=== PATIENT | female | born 1995 | race African-American/Black ===

== ENCOUNTER 2017-07-17 22:15 | Emergency (ER) | payer OTHER ==
--- NOTE | 2017-07-17 23:54 | ER Document Report ---
HPI - HPI Patient complains to provider of: Rhinitis Pain Level: 2 Context: Body aches/chills. She states that this is been over the past 2 days. She has been taking Mucinex [id number] without any significant improvement. Otherwise denies any difficulty breathing, difficulty swallowing, sore throat, cough, nausea, vomiting, diarrhea constipation. Past medical history significant for asthma denies any shortness of breath, chest pain Past Medical History - Social History Smoking Status: Never Smoker Family History: Reviewed & Not Pertinent Vertical Provider Document - CONSTITUTIONAL Agree With Documented VS: Yes Notes: PHYSICAL EXAM GENERAL: Alert, interacts well. HEENT: NCAT, pale conjunctiva, extraocular movements intact, pupils PERRL. external ear normal, no evidence of external auditory canal tenderness, blood/ drainage, cerumen impaction, TM intact without evidence of effusion, bulging, injection, MMM, Uvula midline. Airway patent. No evidence of tonsillar enlargement, peritonsillar abscess, retropharyngeal abscess. NECK: Full range of motion. Supple. Trachea midline. LUNGS: Clear to auscultation bilaterally, no wheezes, rales, or rhonchi. No respiratory distress. HEART: Regular rate and rhythm. No murmurs, gallops, or rubs. EXTREMITIES: Moves all 4 extremities spontaneously. No edema, radial and dorsalis pedis pulses 2/4 bilaterally. No cyanosis. NEUROLOGICAL: Alert and oriented x4. Normal speech. PSYCH: Normal affect, normal mood. SKIN: Warm, dry, normal turgor. No rashes or lesions noted. - INFECTION CONTROL TRAVEL OUTSIDE OF THE [place] IN LAST 30 DAYS: No Course - Re-evaluation Re-evalutation: 07/17/17 23:49 Presentation is most consistent with a viral upper respiratory infection. Patient is overall well appearance, vitals within normal limits, well-hydrated. Patient denies any headache, neck pain, and has no evidence of meningismus on examination. Lungs are clear bilaterally. No evidence of respiratory distress. Based on clinical exam and history, I do not suspect an acute pneumonia, meningitis, strep pharyngitis, or an acute encephalitis. No laboratory or imaging testing is indicated at this time. Will discharge patient with return precautions and followup recommendations. They are in agreement this plan have verbalized understanding return precautions. - Vital Signs Vital signs: Temp Pulse Resp BP Pulse Ox 98.6 F 102 H 20 120/79 98 07/17/17 22:34 07/17/17 22:34 07/17/17 22:34 07/17/17 22:34 07/17/17 22:34 Discharge - Discharge Clinical Impression: Rhinitis Qualifiers: Rhinitis type: unspecified Qualified Code(s): J31.0 - Chronic rhinitis Condition: Good Disposition: HOME, SELF-CARE Additional Instructions: Your symptoms are most likely due to a viral infection it should resolve over the next 7-14 days. For nasal congestion: I would recommend that you get over- the-counter oxymetazoline also known is afrin. Use only per bottle instructions and be sure to never use this for more than 3 days if you can develop severe rebound congestion. You may also use tylenol or ibuprofen as needed for aches and thorat discomfort. Please be sure to drink plenty of fluids and get rest. Return to the emergency department he began having difficulty breathing, chest pain, persistent vomiting, or any other symptoms that are concerning to you. Prescriptions: Albuterol Sulfate [Proair HFA Inhalation Aerosol 8.5 gm MDI] 2 puff IH Q4H PRN # 1 mdi PRN Reason: Forms: Return to Work Referrals: OLIVIA BROWNING MD [ACTIVE STAFF] - Follow up in 1 month
[2017-07-18 00:27] VITALS: BP 118/80
== END 2017-07-18 00:30 | disposition home or self-care (01) ==
LOC: ER 22:15
DX: J31.0 Chronic rhinitis (principal)
CPT/HCPCS: 99283

== ENCOUNTER 2019-02-20 22:16 | Emergency (ER) | payer OTHER ==
[2019-02-21 00:39] LABS: APPEARANCE,URINE SLIGHTLY-CLOUDY; BILIRUBIN,URINE NEGATIVE (NEGATIVE); COLOR,URINE YELLOW; GLUCOSE, URINE NEGATIVE (NEGATIVE); KETONES,URINE NEGATIVE (NEGATIVE); PROTEIN,URINE NEGATIVE (NEGATIVE); URINE SPECIFIC GRAVITY 1.018; UROBILINOGEN,URINE NEGATIVE mg/dL (<2.0)
[2019-02-21] MEDS ORDERED: ONDANSETRON 4 MG TAB.RAPDIS PO ONE (02:34)
--- NOTE | 2019-02-21 02:43 | ER Document Report ---
ED General - General Chief Complaint: Abdominal Pain Stated Complaint: URINARY COMPLAINTS/DISCHARGE Time Seen by Provider: 02/21/19 01:26 Notes: 24-year-old female presents to the ER with vaginal itching, vaginal discharge, nausea, frequent urination, urgency, dysuria, lower abdominal cramping. Patient states urinary symptoms have been ongoing for 1 week and vaginal symptoms/nausea/abdominal cramping been ongoing for past few days. Patient states she has a new sexual partner she has been having unprotected intercourse with. Denies vomiting, diarrhea, abdominal pain, fever. TRAVEL OUTSIDE OF THE [place] IN LAST 30 DAYS: No - Related Data Allergies/Adverse Reactions: No Known Allergies Allergy (Unverified 07/17/17 22:17) Past Medical History - Social History Smoking Status: Never Smoker Chew tobacco use (# tins/day): No Frequency of alcohol use: None Drug Abuse: None Family History: Reviewed & Not Pertinent Patient has suicidal ideation: No Patient has homicidal ideation: No Renal/ Medical History: Denies: Hx Peritoneal Dialysis Review of Systems - Review of Systems Notes: Constitutional: Negative for fever. HENT: Negative for sore throat. Eyes: Negative for visual changes. Cardiovascular: Negative for chest pain. Respiratory: Negative for shortness of breath. Gastrointestinal: Negative for abdominal pain, vomiting or diarrhea. Genitourinary: Positive for dysuria, urgency, frequency, vaginal discharge, vaginal itching. Musculoskeletal: Negative for back pain. Skin: Negative for rash. Neurological: Negative for headaches, weakness or numbness. 10 point ROS negative except as marked above and in HPI. Physical Exam - Vital signs Vitals: Temp Pulse Resp BP Pulse Ox 98.6 F 85 18 107/70 97 02/20/19 22:25 02/20/19 22:25 02/20/19 22:25 02/20/19 22:25 02/20/19 22:25 - Notes Notes: GENERAL: Well-appearing, well-nourished and in no acute distress. HEAD: Atraumatic, normocephalic. EYES: Extraocular movements intact, sclera anicteric, conjunctiva are normal. NECK: Normal range of motion, supple without lymphadenopathy or JVD. ABDOMEN: Soft, nontender. No guarding, no rebound. No masses appreciated. Female : No inguinal adenopathy. External genitalia without erythema, lesions, or masses. Vaginal mucosa pink. Cervix parous, pink, and with white discharge. EXTREMITIES: Normal range of motion, no pitting or edema. No clubbing or cyanosis. NEUROLOGICAL: Cranial nerves II through XII grossly intact. Normal speech, normal gait. PSYCH: Normal mood, normal affect. SKIN: Warm, Dry, normal turgor, no rashes or lesions noted. Course - Re-evaluation Re-evalutation: 02/21/19 Patient is an afebrile, well-hydrated, 24-year-old female who presents to the ED with vaginal discharge, lower abdominal cramping, and urinary symptoms. Vitals are acceptable without any significant tachycardia, tachypnea, or hypoxia. PE is otherwise unremarkable. Urinalysis and hCG are unremarkable for any acute pathology. Wet mount ordered. Chlam/gonorrhea tests also ordered Patient is nontoxic-appearing is tolerating p.o. without any difficulties. No other labs or imaging warranted at this time based on H&P. Low suspicion/risk for acute appendicitis, bowel obstruction, acute cholecystitis, acute cholangitis, perforated diverticulitis, incarcerated hernia, pancreatitis, perforated ulcer, peritonitis, sepsis, pelvic inflammatory disease, ectopic , tubo- ovarian abscess, ovarian torsion, or other systemic emergent condition at this time. 02/21/19 04:41 Pt is positive for Chlamydia. Pt treated with Rocephin and Azithromycin. All results reviewed with pt including positive chlamydia. Pt to inform partner of status and need to have partner treated. Patient is aware that her condition can change from initial presentation and she needs to monitor symptoms closely and seek medical attention if any acute changes. Referral given to obgyn in 3-5 days. Return to the ED with any worsening/concerning symptoms otherwise as reviewed in discharge. Patient is in agreement. - Vital Signs Vital signs: Temp Pulse Resp BP Pulse Ox 98.6 F 85 18 107/70 97 02/20/19 22:25 02/20/19 22:25 02/20/19 22:25 02/20/19 22:25 02/20/19 22:25 - Laboratory Laboratory results interpreted by me: 02/21/19 02/21/19 00:15 02:33 Leukocyte Esterase Rfl SMALL H Urine Ascorbic Acid 40 H Chlamydia DNA (PCR) DETECTED H Discharge - Discharge Clinical Impression: Chlamydia infection Condition: Stable Disposition: HOME, SELF-CARE Instructions: Chlamydia ([facility]) Additional Instructions: You were positive for chlamydia today. You were treated for gonorrhea and chlamydia today. Please follow up with balance wheel facer listed in 3-5 days. Please abstain from sex for 7 days. Please make sure to have your partner treated as well. Return to ER for any worsening symptoms, including pain, fever, increased vaginal discharge, increasing burning with urination, or vomiting or any other symptoms that may be concerning to you. Referrals: [facility] [Provider Group] - Follow up in 3-5 days
[2019-02-21 02:52] LABS: BACTERIA (WET MOUNT) 4+ BACTERIA SEEN; EPITHELIALS (WET MOUNT) 3+ EPITHELIALS SEEN; RBCS (WET MOUNT) NO RBCS SEEN; T.VAGINALIS (WET MOUNT) NO TRICHOMONAS SEEN; WBCS (WET MOUNT) 4+ WBCS SEEN; YEAST (WET MOUNT) NO YEAST SEEN
[2019-02-21 04:15] LABS: CHLAM PCR DETECTED (NOT DETECT)
[2019-02-21] MEDS ORDERED: AZITHROMYCIN 250 MG TABLET PO ONE (04:36)
[2019-02-21] MEDS ORDERED: CEFTRIAXONE INJ 250 MG VIAL IM ONE (04:36)
[2019-02-21] MEDS ORDERED: ONDANSETRON ODT 4 MG TAB (6 TAB/ER DISP) PO PRN (04:47)
[2019-02-21 04:59] VITALS: BP 123/75
== END 2019-02-21 05:00 | disposition home or self-care (01) ==
LOC: ER 22:16
DX: A74.9 Chlamydial infection, unspecified (principal); R10.9 Unspecified abdominal pain; R39.198 Other difficulties with micturition; N89.8 Other specified noninflammatory disorders of vagina; R11.0 Nausea; R35.0 Frequency of micturition; R39.15 Urgency of urination; R30.0 Dysuria; R10.30 Lower abdominal pain, unspecified
CPT/HCPCS: 99284; 96372; 87086; 87210; 81025; 87088; 81001; 87491; 87591; S0119; J0696

== ENCOUNTER 2019-04-16 10:02 | Emergency (ER) | payer SELFPAY ==
[2019-04-16] MEDS ORDERED: CEFTRIAXONE INJ 250 MG VIAL IM ONE (10:17)
[2019-04-16] MEDS ORDERED: AZITHROMYCIN 250 MG TABLET PO ONE (10:17)
[2019-04-16] MEDS ORDERED: LIDOCAINE 1% INJ-PF (10 MG/ML) 30 ML SDV INJ ONE (10:17)
--- NOTE | 2019-04-16 10:20 | ER Document Report ---
HPI - HPI Time Seen by Provider: 04/16/19 10:14 Notes: Patient is a 25-year-old female with history of asthma who presents complaining of urinary burning, urgency, and darker color, scant vaginal discharge and odor that began last night. She is able to eat and drink without difficulty. She is having normal bowel movements. She does not have any pain associated. Denies drug allergies. Denies any headache, fever, neck pain, URI, sore throat, chest pain, palpitations, syncope, cough, shortness of breath, wheeze, dyspnea, abdominal pain, nausea/vomiting/diarrhea, urinary retention, hematuria, back pain, loss of control of bowel or bladder, numbness/tingling, saddle anesthesia, muscle paralysis/weakness, or rash. - ROS Systems Reviewed and Negative: Yes All other systems reviewed and negative - REPRODUCTIVE Reproductive: DENIES: : Past Medical History - Social History Smoking Status: Unknown if Ever Smoked Family History: Reviewed & Not Pertinent Pulmonary Medical History: Reports: Hx Asthma Renal/ Medical History: Denies: Hx Peritoneal Dialysis Vertical Provider Document - CONSTITUTIONAL Agree With Documented VS: Yes Notes: PHYSICAL EXAMINATION: GENERAL: Well-appearing, well-nourished and in no acute distress. LUNGS: Breath sounds clear to auscultation bilaterally and equal. No wheezes rales or rhonchi. HEART: Regular rate and rhythm without murmurs, rubs, gallops. ABDOMEN: Soft, nontender, nondistended abdomen. No guarding, no rebound. Normal bowel sounds present. No CVA tenderness bilaterally. : deferred/declined, no lower pelvic tenderness. Pt wanted to self-swab. Musculoskeletal: FROM to passive/active. Strength 5+/5. Extremities: No cyanosis, clubbing, or edema b/l. Peripheral pulses 2+. Capillary refill less than 3 seconds. NEUROLOGICAL: Normal speech, normal gait. PSYCH: Normal mood, normal affect. SKIN: Warm, Dry, normal turgor, no rashes or lesions noted. - INFECTION CONTROL TRAVEL OUTSIDE OF THE [place] IN LAST 30 DAYS: No Course - Re-evaluation Re-evalutation: 04/16/19 11:14 Patient is an afebrile, well-hydrated, 24-year-old female who presents with an acute UTI. Vitals are acceptable without significant tachycardia, tachypnea, hypoxia. PE is otherwise unremarkable. Patient's abdomen is soft nontender. She is nontoxic-appearing and is tolerating p.o. without difficulty. See urinalysis. Urine cultures pending. See wet mount results. Chlamydia gonorrhea tests are also pending. Patient did receive Zithromax and Rocephin. No further work-up warranted. Low suspicion/risk for acute appendicitis, bowel obstruction, acute cholecystitis, acute cholangitis, perforated diverticulitis, incarcerated hernia, pancreatitis, perforated ulcer, peritonitis, sepsis, pelvic inflammatory disease, ectopic , tubo-ovarian abscess, ovarian torsion, or other systemic emergent condition at this time. Patient is aware that her condition can change from initial presentation and she needs to monitor symptoms closely and seek medical attention if any acute changes. Rx for keflex. Conser vative measures otherwise for symptoms. Recheck with your PCM in 3-5 days. Return to the ED with any worsening/concerning symptoms otherwise as reviewed in discharge. Patient is in agreement. - Vital Signs Vital signs: Temp Pulse Resp BP Pulse Ox 97.9 F 87 16 140/82 H 100 04/16/19 10:07 04/16/19 10:07 04/16/19 10:07 04/16/19 10:04/16/19 10:07 Discharge - Discharge Clinical Impression: Acute UTI (urinary tract infection) Condition: Stable Disposition: HOME, SELF-CARE Instructions: Urinary Tract Infection ([facility]), Cephalexin ([facility]) Additional Instructions: Push fluids (i.e. water, cranberry juice) Proper hygenic technique Keep the skin clean Tylenol/ibuprofen as needed May use over the counter AZO for burning with urination Take medications as directed F/u with your PCM in 3-5 days for a recheck Consider consult with a Urologist for ongoing/worsening symptoms. Return to the ED with any worsening symptoms and/or development of fever, headache, chest pain, palpitations, syncope, shortness of breath, trouble breathing, abdominal pain, n/v/d, blood in stool/urine, loss of control of bowel/bladder, urinary retention, or other worsening symptoms that are concerning to you. Prescriptions: Cephalexin Monohydrate [Keflex 500 mg Capsule] 500 mg PO TID #21 capsule Forms: Elevated Blood Pressure Referrals: [facility] [Provider Group] - Follow up as needed
[2019-04-16 11:02] LABS: APPEARANCE,URINE TURBID; BILIRUBIN,URINE NEGATIVE (NEGATIVE); COLOR,URINE YELLOW; GLUCOSE, URINE NEGATIVE (NEGATIVE); KETONES,URINE TRACE mg/dL (NEGATIVE); LEUKOCYTE ESTERASE,URINE LARGE (NEGATIVE); NITRITE,URINE NEGATIVE (NEGATIVE); PROTEIN,URINE >=500 mg/dL (NEGATIVE); URINE SPECIFIC GRAVITY 1.025
[2019-04-16 11:05] LABS: EPITHELIALS (WET MOUNT) 3+ EPITHELIALS SEEN; RBCS (WET MOUNT) RARE RBCS SEEN; T.VAGINALIS (WET MOUNT) NO TRICHOMONAS SEEN; WBCS (WET MOUNT) FEW WBCS SEEN; YEAST (WET MOUNT) NO YEAST SEEN
[2019-04-16 11:22] VITALS: BP 136/78
[2019-04-16 12:26] LABS: CHLAM PCR NOT DETECTED (NOT DETECT)
== END 2019-04-16 11:26 | disposition home or self-care (01) ==
LOC: ER 10:02
DX: N39.0 Urinary tract infection, site not specified (principal); N89.8 Other specified noninflammatory disorders of vagina; J45.909 Unspecified asthma, uncomplicated
CPT/HCPCS: 99283; 96372; 87086; 87210; 87088; 81001; 87186; 87491; 87591; J3490; J0696

== ENCOUNTER → 2019-07-18 | Outpatient (CLI) | payer SELFPAY ==
[2019-07-18 19:26] LABS: BACTERIA (WET MOUNT) 3+ BACTERIA SEEN; EPITHELIALS (WET MOUNT) 4+ EPITHELIALS SEEN; RBCS (WET MOUNT) NO RBCS SEEN; T.VAGINALIS (WET MOUNT) NO TRICHOMONAS SEEN; WBCS (WET MOUNT) 4+ WBCS SEEN; YEAST (WET MOUNT) NO YEAST SEEN
[2019-07-18 20:51] LABS: CHLAM PCR NOT DETECTED (NOT DETECT)
== END ==
LOC: LAB 19:16
PROVIDERS: ATTEND Nurse Practitioner Family
DX: N89.8 Other specified noninflammatory disorders of vagina (principal); R30.0 Dysuria
CPT/HCPCS: 87086; 87088; 87210; 87491; 87591

== ENCOUNTER 2019-08-03 06:06 | Emergency (ER) | payer SELFPAY ==
[2019-08-03] MEDS ORDERED: ALBUTEROL SULFATE 0.083% NEB 2.5 MG/3 ML AMPUL NEB ONE (06:13)
[2019-08-03] MEDS ORDERED: IPRATROPIUM/ALBUTEROL 0.5-2.5 MG/3 ML AMPUL NEB ONE ×2 (06:13→06:19)
[2019-08-03] MEDS ORDERED: PREDNISONE 20 MG TABLET PO ONE (06:35)
--- NOTE | 2019-08-03 06:41 | ER Document Report ---
ED General - General Chief Complaint: Shortness Of Breath Stated Complaint: ASTHMA EXACERBATION Time Seen by Provider: 08/03/19 06:28 Primary Care Provider: ZËO CORTEZ NP [Primary Care Provider] - Follow up as needed TRAVEL OUTSIDE OF THE [place] IN LAST 30 DAYS: No - HPI Notes: Chief complaint: Asthma exacerbation History of present illness: 24-year-old female with longstanding history of paroxysmal asthma for which she uses albuterol as a rescue inhaler. States she is currently out of her inhaler. She went to visit a family member who has a dog and started wheezing overnight. She drove herself to the emergency department. She is a non-smoker. She denies fever. She denies sputum production. Denies any known exposure to COVID virus. No travel outside the area. Not currently on steroids. No history of diabetes. Patient is on Depo- Provera for contraception. No known allergies. No other significant medical problems. - Related Data Allergies/Adverse Reactions: No Known Allergies Allergy (Verified 03/30/19 16:55) Past Medical History - General Information source: Patient, [facility] Records - Social History Smoking Status: Never Smoker Chew tobacco use (# tins/day): No Frequency of alcohol use: None Drug Abuse: None Family History: Reviewed & Not Pertinent Patient has suicidal ideation: No Patient has homicidal ideation: No Pulmonary Medical History: Reports: Hx Asthma Renal/ Medical History: Denies: Hx Peritoneal Dialysis Review of Systems - Review of Systems Notes: Constitutional: Negative for fever. HENT: Negative for sore throat. Eyes: Negative for visual changes. Cardiovascular: Negative for chest pain. Respiratory: As per HPI. Gastrointestinal: Negative for abdominal pain, vomiting or diarrhea. Genitourinary: Negative for dysuria. Musculoskeletal: Negative for back pain. Skin: Negative for rash. Neurological: Negative for headaches, weakness or numbness. 10 point ROS negative except as marked above and in HPI. Physical Exam - Vital signs Vitals: Temp Pulse Resp BP Pulse Ox 98.9 F 98 24 H 138/84 H 94 08/03/19 06:10 08/03/19 06:10 08/03/19 06:10 08/03/19 06:10 08/03/19 06:10 - Notes Notes: GENERAL: Well-developed well-nourished appearing in no acute distress. SKIN: Good turgor no rashes. HEAD: Normocephalic atraumatic. EYES: PERRLA. EOMI. Conjunctivae and sclerae clear. EARS: CANALS AND TMS CLEAR. NOSE: CLEAR. MOUTH: Moist mucosa. Good dentition. No stridor or edema. No drooling. NECK: Supple. No masses or thyromegaly. No adenopathy. Carotids 2+ without bruits. No JVD. BACK: Symmetrical without tenderness. CHEST: Respirations unlabored. Scattered faint end expiratory wheezes bilaterally. HEART: Regular rhythm. No murmur gallop or rub. ABDOMEN: Soft nontender without masses, organomegaly or rebound. Bowel sounds normally active. No bruits. GENITALIA: Deferred. EXTREMITIES: No edema. No calf tenderness. Cap refill less than 1.5 seconds. Dorsalis pedis and posterior tibial pulses 3+ and symmetrical. NEUROLOGICAL: GCS 15. Alert and oriented x3. Normal gait. Fluent speech. Cranial nerves II through XII intact. Sensorimotor and cerebellar normal. Normal tone. PSYCHIATRIC: Appropriate affect. Course - Re-evaluation Re-evalutation: 08/03/19 06:39 Patient has received multiple DuoNeb treatments here. Oxygenation is good. Wheezes have essentially resolved. She has been given some oral prednisone. I am going to refill a metered-dose inhaler for her and discharge her home. - Vital Signs Vital signs: Temp Pulse Resp BP Pulse Ox 98.9 F 98 24 H 138/84 H 94 08/03/19 06:10 08/03/19 06:10 08/03/19 06:10 08/03/19 06:10 08/03/19 06:10 Discharge - Discharge Clinical Impression: Asthma exacerbation Qualifiers: Asthma severity: mild Asthma persistence: intermittent Qualified Code(s): J45.21 - Mild intermittent asthma with (acute) exacerbation Condition: Stable Disposition: HOME, SELF-CARE Instructions: Asthma ([facility]), Inhaled Bronchodilators ([facility]) Prescriptions: Prednisone [Deltasone 20 mg Tablet] 2 tab PO DAILY 5 Days tablet Albuterol Sulfate [Proair HFA Inhalation Aerosol 8.5 gm MDI] 2 puff IH Q4H PRN #1 mdi PRN Reason: Referrals: ZOË CORTEZ [employer] [Primary Care Provider] - Follow up as needed
[2019-08-03 07:25] VITALS: BP 121/79
== END 2019-08-03 07:45 | disposition home or self-care (01) ==
LOC: ER 06:06
DX: J45.21 Mild intermittent asthma with (acute) exacerbation (principal); Z79.899 Other long term (current) drug therapy; Z79.3 Long term (current) use of hormonal contraceptives
CPT/HCPCS: 94640; 99284; J7512; J7620

== ENCOUNTER 2019-10-07 19:59 | Emergency (ER) | payer SELFPAY ==
--- NOTE | 2019-10-07 20:30 | ER Document Report ---
ED Medical Screen (RME) - General Chief Complaint: Vaginal Discharge Stated Complaint: VAGINAL ISSUE Time Seen by Provider: 10/07/19 20:27 Information source: Patient Notes: 24-year-old female with yellow frothy discharge frequency urgency burning and lower abdominal pain TRAVEL OUTSIDE OF THE [place] IN LAST 30 DAYS: No - Related Data Allergies/Adverse Reactions: No Known Allergies Allergy (Verified 10/07/19 20:24) Past Medical History - Social History Frequency of alcohol use: None Drug Abuse: None Pulmonary Medical History: Reports: Hx Asthma Renal/ Medical History: Denies: Hx Peritoneal Dialysis Physical Exam - Vital signs Vitals: Temp Pulse Resp BP Pulse Ox 99 F 98 14 130/81 H 98 10/07/19 20:02 10/07/19 20:02 10/07/19 20:02 10/07/19 20:02 10/07/19 20:02 Course - Vital Signs Vital signs: Temp Pulse Resp BP Pulse Ox 99 F 98 14 130/81 H 98 10/07/19 20:24 10/07/19 20:02 10/07/19 20:02 10/07/19 20:02 10/07/19 20:02
[2019-10-07 21:02] LABS: ABSOLUTE BASOPHILS # (AUTO) 0.1 10^3/uL (0.0-0.2); ABSOLUTE EOSINOPHILS # (AUTO) 0.3 10^3/uL (0.0-0.6); ABSOLUTE LYMPHOCYTES (AUTO) 3.2 10^3/uL (0.5-4.7); ABSOLUTE MONOCYTES (AUTO) 0.9 10^3/uL (0.1-1.4); ABSOLUTE NEUT (AUTO) 5.2 10^3/uL (1.7-8.2); BASOPHILS % (AUTO) 0.8 % (0-2); EOSINOPHILS % (AUTO) 3.5 % (0-6); HEMATOCRIT 39.9 % (36.0-47.0); HEMOGLOBIN 13.8 g/dL (12.0-15.5); LYMPHOCYTES % (AUTO) 33.3 % (13-45); MEAN CORPUSCULAR HEMOGLOBIN 30.2 pg (27.0-33.4); MEAN CORPUSCULAR HGB CONC 34.5 g/dL (32.0-36.0); MEAN CORPUSCULAR VOLUME 88 fl (80-97); MONOCYTES % (AUTO) 8.8 % (3-13); PLATELET COUNT 333 10^3/uL (150-450); RED BLOOD COUNT 4.56 10^6/uL (3.72-5.28); RED CELL DISTRIBUTION WIDTH 12.8 % (11.5-14.0); SEGMENTED NEUTROPHILS % (AUTO) 53.6 % (42-78); TOTAL CELLS COUNTED % (AUTO) 100 %; WHITE BLOOD COUNT 9.7 10^3/uL (4.0-10.5)
[2019-10-07 21:15] LABS: URINE AMPHETAMINES SCREEN NEGATIVE; URINE BARBITURATES SCREEN NEGATIVE; URINE BENZODIAZEPINES SCREEN NEGATIVE; URINE COCAINE SCREEN NEGATIVE; URINE METHADONE SCREEN NEGATIVE; URINE PHENCYCLIDINE SCREEN NEGATIVE
[2019-10-07 21:18] LABS: URINE MARIJUANA (THC) SCREEN UNCONFIRMED POSITIVE
[2019-10-07 21:25] LABS: ALBUMIN 4.6 g/dL (3.5-5.0); ALKALINE PHOSPHATASE 63 U/L (38-126); ANION GAP 8 (5-19); ASPARTATE AMINO TRANSFERASE 20 U/L (14-36); BILIRUBIN,TOTAL 0.4 mg/dL (0.2-1.3); BLOOD UREA NITROGEN 7 mg/dL (7-20); CALCIUM 10.1 mg/dL (8.4-10.2); CARBON DIOXIDE 24 mmol/L (22-30); CHLORIDE 106 mmol/L (98-107); GLUCOSE 86 mg/dL (75-110); POTASSIUM 3.8 mmol/L (3.6-5.0)
[2019-10-07 22:27] LABS: CHLAM PCR NOT DETECTED (NOT DETECT)
[2019-10-08 01:57] VITALS: BP 120/67
[2019-10-08 02:12] LABS: EPITHELIALS (WET MOUNT) 3+ EPITHELIALS SEEN; RBCS (WET MOUNT) 1+ RBCS SEEN; T.VAGINALIS (WET MOUNT) NO TRICHOMONAS SEEN; WBCS (WET MOUNT) 1+ WBCS SEEN; YEAST (WET MOUNT) NO YEAST SEEN
--- NOTE | 2019-10-08 02:17 | ER Document Report ---
ED GI/ - General Chief Complaint: Vaginal Discharge Stated Complaint: VAGINAL ISSUE Time Seen by Provider: 10/07/19 20:27 Primary Care Provider: [facility] [Provider Group] - Follow up as needed Mode of Arrival: Ambulatory Information source: Patient Notes: 21-year-old female presented to ED for complaint of yellow frothy vaginal discharge. The note upon had said that she was having burning with urination and lower abdominal pain. Patient states she was not having any pain at all she was having vaginal discharge and odor and so she was concerned. TRAVEL OUTSIDE OF THE [place] IN LAST 30 DAYS: No - HPI Patient complains to provider of: Vaginal discharge Onset: Other - Several days Timing/Duration: Persistent Quality of pain: No pain Severity in ED: None Pain Level: Denies Vaginal bleeding (Compared to normal period): None Associated symptoms: Vaginal discharge Exacerbated by: Denies Relieved by: Denies Similar symptoms previously: Yes Recently seen / treated by doctor: No - Related Data Allergies/Adverse Reactions: No Known Allergies Allergy (Verified 10/07/19 20:24) Past Medical History - General Information source: Patient - Social History Smoking Status: Never Smoker Frequency of alcohol use: None Drug Abuse: None Family History: Reviewed & Not Pertinent Patient has homicidal ideation: No - Past Medical History Cardiac Medical History: Reports: None Pulmonary Medical History: Reports: Hx Asthma EENT Medical History: Reports: None Neurological Medical History: Reports: None Endocrine Medical History: Reports: None Renal/ Medical History: Reports: None Malignancy Medical History: Reports: None GI Medical History: Reports: None Musculoskeletal Medical History: Reports None Skin Medical History: Reports None Psychiatric Medical History: Reports: None Traumatic Medical History: Reports: None Infectious Medical History: Reports: None Surgical Hx: Negative Past Surgical History: Reports: None - Immunizations Immunizations up to date: Yes Review of Systems - Review of Systems Constitutional: No symptoms reported EENT: No symptoms reported Cardiovascular: No symptoms reported Respiratory: No symptoms reported Gastrointestinal: No symptoms reported Genitourinary: No symptoms reported Female Genitourinary: Vaginal discharge, Vaginal odor Musculoskeletal: No symptoms reported Skin: No symptoms reported Hematologic/Lymphatic: No symptoms reported Neurological/Psychological: No symptoms reported -: Yes All other systems reviewed and negative Physical Exam - Vital signs Vitals: Temp Pulse Resp BP Pulse Ox 99 F 98 14 130/81 H 98 10/07/19 20:02 10/07/19 20:02 10/07/19 20:02 10/07/19 20:02 10/07/19 20:02 Interpretation: Normal - General General appearance: Appears well, Alert - HEENT Head: Normocephalic, Atraumatic Eyes: Normal Pupils: PERRL - Respiratory Respiratory status: No respiratory distress Chest status: Nontender Breath sounds: Normal Chest palpation: Normal - Cardiovascular Rhythm: Regular Heart sounds: Normal auscultation Murmur: No - Abdominal Inspection: Normal Distension: No distension Bowel sounds: Normal Tenderness: Nontender Organomegaly: No organomegaly Notes: She denies any pain has had vaginal discharge - Back Back: Normal, Nontender - Extremities General upper extremity: Normal inspection, Nontender, Normal color, Normal ROM, Normal temperature General lower extremity: Normal inspection, Nontender, Normal color, Normal ROM, Normal temperature, Normal weight bearing. No: Maycol's sign - Neurological Neuro grossly intact: Yes Cognition: Normal Orientation: AAOx4 [place] Coma Scale Eye Opening: Spontaneous [place] Coma Scale Verbal: Oriented [place] Coma Scale Motor: Obeys Commands [place] Coma Scale Total: 15 Speech: Normal Motor strength normal: LUE, RUE, LLE, RLE Sensory: Normal - Psychological Associated symptoms: Normal affect, Normal mood - Skin Skin Temperature: Warm Skin Moisture: Dry Skin Color: Normal Course - Re-evaluation Re-evalutation: 10/08/19 07:22 Patient states she has vaginal discharge and odor. She states she has no a bdominal pain no pelvic pain. States she just did not know why she was having this vaginal discharge. She states she uses different female hygiene products and the odor does not improve. I have given her instructions concerning to stop using the douches and to use yogurt to reestablish the bacteria to her vaginal area to reduce the odor. Her GC and chlamydia and wet mount were negative. Patient was discharged home with instructions to follow-up with [facility]. - Vital Signs Vital signs: Temp Pulse Resp BP Pulse Ox 97.8 F 66 16 120/67 99 10/08/19 01:57 10/08/19 01:57 10/08/19 01:57 10/08/19 01:57 10/08/19 01:57 - Laboratory Result Diagrams: 10/07/19 20:40 10/07/19 20:40 Discharge - Discharge Clinical Impression: Vaginal discharge Condition: Stable Disposition: HOME, SELF-CARE Additional Instructions: You were seen today for vaginal discharge. Your gonorrhea chlamydia test is negative. Your wet mount for trichomonas or yeast is negative. Your urine is negative for any UTI. Your blood work is normal. As we have discussed please stop using vaginal douches as this alters the pH which actually can cause discharge and odor. Eat yogurt or take a probiotic to help to be established the pH in this area Acetaminophen Acetaminophen may be taken for pain relief or fever control. It's much safer than aspirin, offering a wider range of "safe" dosages. It is safe during . Some brand names are Tylenol, Panadol, Datril, Anacin 3, Tempra, and Liquiprin. Acetaminophen can be repeated every four hours. The following are maximum recommended dosages: WEIGHT Dose Drops Elixir Chewable(80mg) (LBS.) drprs=droppers tsp=teaspoon 6 40 mg .4 ml (1/2) 6-11 80 mg .8 ml (full) 1/2 tsp 1 tab 12-16 120 mg 1 1/2 drprs 3/4 tsp 1 1/2 tabs 17-23 160 mg 2 drprs 1 tsp 2 tabs 24-30 240 mg 3 drprs 1 1/2 tsp 3 tabs 30-35 320 mg 2 tsp 4 tabs 36-41 360 mg 2 1/4 tsp 4 1/2 tabs 42-47 400 mg 2 1/2 tsp 5 tabs 48-53 480 mg 3 tsp 6 tabs 54-59 520 mg 3 1/4 tsp 6 1/2 tabs 60-64 560 mg 3 1/2 tsp 7 tabs 65-70 600 mg 3 3/4 tsp 7 1/2 tabs 71-76 640 mg 4 tsp 8 tabs 77-82 720 mg 4 1/2 tsp 9 tabs 83-88 800 mg 5 tsp 10 tabs >89 pounds or adults 650 mg to 900 mg Acetaminophen can be repeated every four hours. Maximum daily dose not to exceed 4000 mg. These maximum recommended dosages are slightly higher than the dosages written on the product container, but these dosages are very safe and well below the toxic dosage for acetaminophen. Ibuprofen Ibuprofen is an excellent, safe drug for pain control. In addition, it has potent antiinflammatory effects which are beneficial, especially in the treatment of injuries, arthritis, or tendonitis. It's best to take ibuprofen with food. Persons with ulcer disease or allergy to aspirin should notify their physician of this before taking ibuprofen. Take the medication exactly as prescribed. Don't take additional doses unless instructed to do so by your doctor. If you develop wheezing, shortness of breath, hives, faintness, stomach pain, vomiting, or dark black stools, return for re-evaluation at once. FOLLOW-UP CARE: If you have been referred to a physician for follow-up care, call the physicians office for an appointment as you were instructed or within the next two days. If you experience worsening or a significant change in your symptoms, notify the physician immediately or return to the Emergency Department at any time for re-evaluation. Forms: Smoking Cessation Education, Return to Work Referrals: [facility] [Provider Group] - Follow up as needed
== END 2019-10-08 02:35 | disposition home or self-care (01) ==
LOC: ER 19:59
DX: N89.8 Other specified noninflammatory disorders of vagina (principal); R30.0 Dysuria; R10.30 Lower abdominal pain, unspecified
CPT/HCPCS: 36415; 80053; 80307; 84703; 85025; 87210; 87491; 87591; 99283

== ENCOUNTER 2019-11-20 22:06 | Emergency (ER) | payer SELFPAY ==
[2019-11-20] MEDS ORDERED: NORMAL SALINE 1000 ML 1,000 ML IV ONE (23:29)
[2019-11-20] MEDS ORDERED: IPRATROPIUM/ALBUTEROL 0.5-2.5 MG/3 ML AMPUL NEB ONE (23:29)
[2019-11-20] MEDS ORDERED: METHYLPREDNISOLONE INJ 125 MG/2 ML SDV IV ONE (23:29)
--- NOTE | 2019-11-20 23:32 | ER Document Report ---
ED General - General Chief Complaint: Sore Throat Stated Complaint: FEVER,SHORTNESS OF BREATH Time Seen by Provider: 11/20/19 23:03 Notes: Patient is a 24-year-old female that comes emergency department for chief complaint of sore throat, then congestion, body aches, subjective fevers, and a worsening cough with mainly clear but occasionally yellowish mucus production. She has not tested her temperature but reports she has had chills. She does have a history of asthma and uses a nebulizer at home, she denies smoking. She denies any other medications or past medical history, she denies recreational drugs except for marijuana. She denies any obvious sick contacts or recent travel. She denies . TRAVEL OUTSIDE OF THE [place] IN LAST 30 DAYS: No - Related Data Allergies/Adverse Reactions: No Known Allergies Allergy (Verified 10/07/19 20:24) Home Medications: Albuterol inhaler. Neb tx/machine Past Medical History - General Information source: Patient - Social History Smoking Status: Never Smoker Chew tobacco use (# tins/day): No Frequency of alcohol use: None Drug Abuse: None Lives with: Family Family History: Reviewed & Not Pertinent Patient has homicidal ideation: No Pulmonary Medical History: Reports: Hx Asthma Renal/ Medical History: Denies: Hx Peritoneal Dialysis - Immunizations Immunizations up to date: Yes Review of Systems - Review of Systems Constitutional: See HPI EENT: See HPI Cardiovascular: No symptoms reported Respiratory: See HPI Gastrointestinal: No symptoms reported Genitourinary: No symptoms reported Female Genitourinary: No symptoms reported Musculoskeletal: No symptoms reported Skin: No symptoms reported Hematologic/Lymphatic: No symptoms reported Neurological/Psychological: No symptoms reported Physical Exam - Vital signs Vitals: Temp Pulse Resp BP Pulse Ox 99.6 F 123 H 18 137/82 H 93 11/20/19 22:15 11/20/19 22:15 11/20/19 22:15 11/20/19 22:15 11/20/19 22:15 - Notes Notes: GENERAL: Alert, interacts well. No acute distress. HEAD: Normocephalic, atraumatic. EYES: Pupils equal, round, and reactive to light. Extraocular movements intact. ENT: Oral mucosa moist, tongue midline. Oropharynx unremarkable. Airway patent. Nares patent, sinuses non-tender NECK: Full range of motion. Supple. Trachea midline. No lymphadenopathy. LUNGS: Expiratory wheezes throughout. Occasional congested cough. Speaks in full sentences, no respiratory distress HEART: Regular rate and rhythm. No murmur ABDOMEN: Soft, non-tender. Non-distended. EXTREMITIES: Moves all 4 extremities spontaneously. No edema, normal radial and dorsalis pedis pulses bilaterally. No cyanosis. BACK: no cervical, thoracic, lumbar midline tenderness. No saddle anesthesia, normal distal neurovascular exam. Moves all extremities in full range of motion. NEUROLOGICAL: Alert and oriented x3. Normal speech. Cranial nerves II through XI I grossly intact. Strength 5/5 in all extremities. PSYCH: Normal affect, normal mood. SKIN: Warm, dry, normal turgor. No rashes or lesions noted. Course - Re-evaluation Re-evalutation: On my initial exam patient has loud expiratory wheezing throughout, borderline hypoxia, tachycardia. Patient was treated with duo nebs, IV fluids, patient improved but did not have resolution. Patient was given additional duo nebs, magnesium, after this wheezing almost completely resolved. Patient smiling, states she feels much better. Tachycardia almost resolved. Chest x-ray unremarkable, CBC shows mild leukocytosis with elevation of both neutrophils and eosinophils. Chemistry nonspecific. Patient has been tested for COVID-19. Patient ambulated without any hypoxia or any signs of distress. She states she is comfortable going home and would prefer to go home. Because she is doing so well now, patient will be discharged with strict return precautions. Discussed options, patient was given dexamethasone instead of steroids, patient was given refill of her inhalers, patient will be treated/covered for potential underlying pneumonia because of her productive cough and leukocytosis with elevation of neutrophils. Patient states appreciation and agreement with plan, stable and well-appearing at time of discharge. - Vital Signs Vital signs: Temp Pulse Resp BP Pulse Ox 98.7 F 106 H 16 108/66 96 11/21/19 04:36 11/21/19 04:17 11/21/19 04:17 11/21/19 04:17 11/21/19 04:17 - Laboratory Result Diagrams: 11/21/19 00:50 11/20/19 23:40 Laboratory results interpreted by me: 11/20/19 11/21/19 23:40 00:50 WBC 12.7 H Absolute Neuts (auto) 8.9 H Absolute Eos (auto) 0.8 H Potassium 3.5 L BUN 2 L Discharge - Discharge Clinical Impression: Productive cough, Chills, Wheezing Asthma exacerbation Qualifiers: Asthma severity: moderate Asthma persistence: unspecified Qualified Code(s): J45.901 - Unspecified asthma with (acute) exacerbation Condition: Stable Disposition: HOME, SELF-CARE Additional Instructions: Your evaluation shows an asthma exacerbation and I suspect a viral illness although because of your productive cough and elevated white blood cell count we have decided to cover you for pneumonia. You have been tested for the coronavirus. You will be contacted with the results. Complete your antibiotic course, use albuterol inhaler and nebulizer, rest. Follow-up with primary care closely. See additional instructions in regards to COVID-19 testing. Come back if you worsen including spiking fevers, difficulty breathing, or any other concerning or worsening symptoms. As a person under investigation for COVID-19, the [place] Department of Health and Human Services (division on public health) advises you to adhere to the following guidance until your test results are reported to you. If your test result is positive, you will receive additional information from your provider and your local health department at that time. Remain at home until you are cleared by the health provider or public health authorities. Keep a log of visitors to your home, notify any visitors to your home of your isolation status. If you plan to move to a new address or leave the [facility], notify the local health department in your [facility]. Call your Doctor or seek care if you have an urgent medical need. Before seeking medical care, call him to get instructions from the provider before arriving at the medical office, clinic, or hospital. Notify them that you are being tested for the virus (COVID-19) so that arrangements can be made, as necessary, to prevent transmission to others in the healthcare setting. Next, notify the local health department in your county. If a medical emergency arises and you need to call 911, inform the first responders that you are being tested for the virus that causes COVID-19. Next, notify the local health department in your county. Prescriptions: Albuterol Sulfate [Proventil 0.5% Neb 2.5 mg/0.5 ml Vial.neb] 2.5 mg NEB Q4HP PRN #30 vial.neb PRN Reason: Albuterol Sulfate [Proair HFA Inhalation Aerosol 8.5 gm MDI] 2 puff IH Q4H PRN #1 mdi PRN Reason: Azithromycin [Zithromax 250 mg Tablet] 250 mg PO ASDIR PRN #4 tablet PRN Reason: Forms: Return to Work
[2019-11-21 00:29] LABS: ALKALINE PHOSPHATASE 87 U/L (38-126); ANION GAP 9 (5-19); ASPARTATE AMINO TRANSFERASE 25 U/L (14-36); BILIRUBIN,TOTAL 0.3 mg/dL (0.2-1.3); BLOOD UREA NITROGEN 2 mg/dL (7-20); CALCIUM 9.2 mg/dL (8.4-10.2); CARBON DIOXIDE 23 mmol/L (22-30); CHLORIDE 105 mmol/L (98-107); GLUCOSE 90 mg/dL (75-110); POTASSIUM 3.5 mmol/L (3.6-5.0); TOTAL PROTEIN 6.9 g/dL (6.3-8.2)
--- NOTE | 2019-11-21 00:45 | RADIOLOGY REPORT (SQ) ---
EXAM DESCRIPTION: XR CHEST 1 VIEW COMPLETED DATE/TME: 11/20/2019 23:29 CLINICAL HISTORY: 24 years, Female, fever, shortness of breath COMPARISON: None. NUMBER OF VIEWS: 1 TECHNIQUE: Portable chest LIMITATIONS: None. FINDINGS: Heart size is normal. Lungs are clear. Artifact overlies the left lung base. No pneumothorax IMPRESSION: No acute cardiopulmonary process copyright 2010 [employer]- All Rights Reserved
[2019-11-21 01:00] LABS: ABSOLUTE BASOPHILS # (AUTO) 0.1 10^3/uL (0.0-0.2); ABSOLUTE EOSINOPHILS # (AUTO) 0.8 10^3/uL (0.0-0.6); ABSOLUTE LYMPHOCYTES (AUTO) 1.9 10^3/uL (0.5-4.7); ABSOLUTE MONOCYTES (AUTO) 1.1 10^3/uL (0.1-1.4); ABSOLUTE NEUT (AUTO) 8.9 10^3/uL (1.7-8.2); BASOPHILS % (AUTO) 0.4 % (0-2); HEMATOCRIT 37.5 % (36.0-47.0); HEMOGLOBIN 12.9 g/dL (12.0-15.5); MEAN CORPUSCULAR HGB CONC 34.4 g/dL (32.0-36.0); MEAN CORPUSCULAR VOLUME 87 fl (80-97); MONOCYTES % (AUTO) 8.8 % (3-13); PLATELET COUNT 295 10^3/uL (150-450); RED BLOOD COUNT 4.31 10^6/uL (3.72-5.28); RED CELL DISTRIBUTION WIDTH 13.7 % (11.5-14.0); SEGMENTED NEUTROPHILS % (AUTO) 69.8 % (42-78); TOTAL CELLS COUNTED % (AUTO) 100 %; WHITE BLOOD COUNT 12.7 10^3/uL (4.0-10.5)
[2019-11-21] MEDS ORDERED: IPRATROPIUM/ALBUTEROL 0.5-2.5 MG/3 ML AMPUL NEB ONE (01:21)
[2019-11-21] MEDS: MAGNESIUM SULFATE/D5W 1 GM/100 ML RTUPB IV SCH ×2 (01:53→02:58)
[2019-11-21] MEDS ORDERED: DEXAMETHASONE SOD PHOS INJ 10 MG/1 ML VIAL IV ONE (03:43)
[2019-11-21] MEDS ORDERED: AZITHROMYCIN 250 MG TABLET PO ONE (03:43)
[2019-11-21] MEDS ORDERED: ALBUTEROL SULFATE HFA (90 MCG/PUFF) 8 GM MDI IH ONE (03:43)
[2019-11-21] MEDS ORDERED: DEXAMETHASONE SOD PHOSPHATE INJ 4 MG/1 ML VIAL ONE (04:06)
[2019-11-21 04:40] VITALS: BP 108/66
== END 2019-11-21 04:36 | disposition home or self-care (01) ==
LOC: ER 22:06
DX: J45.901 Unspecified asthma with (acute) exacerbation (principal); J02.9 Acute pharyngitis, unspecified; R50.9 Fever, unspecified; Z20.828 Contact with and (suspected) exposure to other viral communicable diseases
CPT/HCPCS: 94640 ×2; 99283; 96361; 96375; 96365; 96366; 36415; 87040; 84703; 85025; 87635; 80053; 71045; J2930; J3475; J7030; J1100; J3490; C9803